=== PATIENT | female | born 1970 | race Caucasian/White ===

== ENCOUNTER 2017-01-31 13:40 | Emergency (ER) | payer BC ==
[2017-01-31 14:57] VITALS: BP 132/84
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
== END 2017-01-31 16:20 | disposition home or self-care (01) ==
LOC: JP.ED 13:40
DX: S60.211A Contusion of right wrist, initial encounter (principal); G56.21 Lesion of ulnar nerve, right upper limb; X58.XXXA Exposure to other specified factors, initial encounter
CPT/HCPCS: 99284